=== PATIENT | male | born 1985 | race Hispanic/Latino ===

== ENCOUNTER 2017-01-25 23:16 | Emergency (ER) | payer OTHER ==
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
[2017-01-25] MEDS ORDERED: ZOFRAN ODT PO ONE (23:34)
[2017-01-25] MEDS ORDERED: PERCOCET 5/325 PO ONE (23:34)
--- NOTE | 2017-01-26 00:05 | XRay Report ---
FINAL REPORT PROCEDURE: XR ANKLE 3 RT TECHNIQUE: RIGHT ankle radiographs, AP, lateral, and oblique views. CPT 21404 HISTORY: RT ankle injury with pain COMPARISON: No prior studies are available for comparison. FINDINGS: Fracture (s) and/or Dislocation(s): None. Alignment: Normal. Joint space(s): Normal. Soft tissues: Mild soft tissue swelling over the lateral ankle. Mild joint effusion. Bone mineralization: Normal. Foreign bodies: None. Calcaneal spurring: None. IMPRESSION: No evidence of an acute fracture or dislocation. Mild soft tissue swelling and slight joint effusion..
[2017-01-26 01:25] VITALS: BP 119/76
== END 2017-01-26 01:31 | disposition home or self-care (01) ==
LOC: ED 23:16
DX: S93.401A Sprain of unspecified ligament of right ankle, initial encounter (principal); F17.200 Nicotine dependence, unspecified, uncomplicated; W10.1XXA Fall (on)(from) sidewalk curb, initial encounter; Y93.9 Activity, unspecified; Y92.9 Unspecified place or not applicable; Y99.9 Unspecified external cause status
CPT/HCPCS: 99283; Q0162